=== PATIENT | male | born 1935 | race Native Hawaiian/Other Pacific Islander ===

== ENCOUNTER 2016-07-17 06:01 | Outpatient (CLI) | payer OTHER, BC ==
[2016-07-17 06:30] LABS: PLATELET COUNT 177 K/uL (142-355)
[2016-07-17 07:06] LABS: POTASSIUM 4.3 mmol/L (3.6-5.2)
== END 2016-07-17 19:08 | disposition home or self-care (01) ==
LOC: LABW 06:01
PROVIDERS: Internal Medicine Cardiovascular Disease
DX: E78.4 Other hyperlipidemia (principal); Z79.899 Other long term (current) drug therapy; Z51.81 Encounter for therapeutic drug level monitoring
CPT/HCPCS: 36415; 80048; 80061; 80076; 85027

== ENCOUNTER 2018-07-02 11:40 | Outpatient (CLI) | payer OTHER, BC | END 2018-07-02 12:02 | disposition short-term general hospital (02) | LOC: AMB 11:40 | DX: R53.1 Weakness (principal) | CPT/HCPCS: A0425; A0427 ==

== ENCOUNTER 2018-11-05 08:20 | Outpatient (CLI) | payer OTHER, BC ==
[2018-11-05 08:53] LABS: PLATELET COUNT 158 K/uL (142-355)
[2018-11-05 09:14] LABS: POTASSIUM 3.6 mmol/L (3.6-5.2)
== END 2018-11-05 19:50 | disposition home or self-care (01) ==
LOC: LABW 08:20
PROVIDERS: Internal Medicine
DX: R22.1 Localized swelling, mass and lump, neck (principal); N18.4 Chronic kidney disease, stage 4 (severe)
CPT/HCPCS: 36415; 80053; 81000; 82306; 82330; 82570; 83735; 83970; 84100; 84155; 85027

== ENCOUNTER 2018-12-29 09:26 | Outpatient (CLI) | payer OTHER, BC ==
[2018-12-29 10:00] LABS: PLATELET COUNT 166 K/uL (142-355)
[2018-12-29 10:09] LABS: POTASSIUM 3.7 mmol/L (3.6-5.2)
== END 2018-12-29 23:59 ==
LOC: LABW 09:26
PROVIDERS: Internal Medicine
DX: N18.4 Chronic kidney disease, stage 4 (severe) (principal); N25.81 Secondary hyperparathyroidism of renal origin
CPT/HCPCS: 36415; 80053; 81000; 82306; 82330; 82570; 83735; 83970; 84100; 84155; 85027

== ENCOUNTER 2019-01-26 08:20 | Outpatient (CLI) | payer OTHER, BC ==
[2019-01-26 09:02] LABS: PLATELET COUNT 157 K/uL (142-355)
== END 2019-01-26 23:15 | disposition home or self-care (01) ==
LOC: LABW 08:20
PROVIDERS: Internal Medicine
DX: N18.4 Chronic kidney disease, stage 4 (severe) (principal); N25.81 Secondary hyperparathyroidism of renal origin; D50.8 Other iron deficiency anemias; E53.8 Deficiency of other specified B group vitamins
CPT/HCPCS: 36415; 80053; 81000; 82306; 82330; 82570; 82607; 82728; 82746; 83540; 83550; 83735; 83970; 84100; 84155; 85027

== ENCOUNTER 2019-02-23 09:07 | Outpatient (CLI) | payer OTHER, BC ==
[2019-02-23 09:37] LABS: PLATELET COUNT 154 K/uL (142-355)
[2019-02-23 09:56] LABS: POTASSIUM 4.1 mmol/L (3.6-5.2)
== END 2019-02-23 19:29 | disposition home or self-care (01) ==
LOC: LABW 09:07
PROVIDERS: Internal Medicine
DX: N18.4 Chronic kidney disease, stage 4 (severe) (principal); N25.81 Secondary hyperparathyroidism of renal origin; D50.8 Other iron deficiency anemias
CPT/HCPCS: 36415; 80053; 81000; 82306; 82330; 82570; 82607; 82728; 82746; 83540; 83550; 83735; 83970; 84100; 84155; 85027

== ENCOUNTER 2019-04-05 05:07 | Emergency (ER) | payer OTHER, BC ==
[~2019-04-05] VITALS: Ht 180.3 cm; Wt 64.0 kg
[2019-04-05 05:07] VITALS: TEMP 97.9
[2019-04-05 05:50] LABS: PLATELET COUNT 160 K/uL (142-355)
[2019-04-05 06:06] LABS: POTASSIUM 3.7 mmol/L (3.6-5.2)
[2019-04-05] MEDS ORDERED: FLUOXETINE20 MG PO (06:27)
[2019-04-05] MEDS ORDERED: RENAL VITAMIN PO (06:28)
[2019-04-05] MEDS ORDERED: PANTOPRAZOLE SO40 M1 PO (06:28)
[2019-04-05] MEDS ORDERED: ASPI-93 PO (06:29)
[2019-04-05] MEDS ORDERED: VITAMIN B-121000 MC2 PO (06:29)
[2019-04-05] MEDS ORDERED: PROBIOTIC1 TAB PO (06:29)
[2019-04-05] MEDS ORDERED: VITAMIN D1000 UNI1 PO (06:32)
[2019-04-05 08:00] VITALS: BP 151/71
== END 2019-04-05 08:15 | disposition short-term general hospital (02) ==
LOC: ED 05:07
PROVIDERS: Hospitalist
DX: R07.89 Other chest pain (principal); I21.4 Non-ST elevation (NSTEMI) myocardial infarction; I50.9 Heart failure, unspecified; F17.210 Nicotine dependence, cigarettes, uncomplicated
CPT/HCPCS: 36415; 80053; 82550; 83880; 84484; 85027; 85610; 85730; 93005; 96372; 96374; 99284; J1650; J1940

== ENCOUNTER 2019-04-05 08:48 | Outpatient (CLI) | payer OTHER, BC ==
[~2019-04-05 08:48] MED LIST: ASPI-93 PO; FLUOXETINE20 MG PO; PANTOPRAZOLE SO40 M1 PO; PROBIOTIC1 TAB PO; RENAL VITAMIN PO; VITAMIN B-121000 MC2 PO; VITAMIN D1000 UNI1 PO
== END 2019-04-05 09:56 | disposition short-term general hospital (02) ==
LOC: AMB 08:48
DX: I45.19 Other right bundle-branch block (principal); R94.31 Abnormal electrocardiogram [ECG] [EKG]; R07.89 Other chest pain; R79.89 Other specified abnormal findings of blood chemistry
CPT/HCPCS: A0425; A0427

== ENCOUNTER 2019-05-17 10:37 | Outpatient (CLI) | payer OTHER, BC ==
[2019-05-17 10:53] LABS: PLATELET COUNT 110 K/uL (142-355)
[2019-05-17 11:04] LABS: POTASSIUM 3.6 mmol/L (3.6-5.2)
== END 2019-05-17 22:34 | disposition home or self-care (01) ==
LOC: LABW 10:37
PROVIDERS: Internal Medicine
DX: N18.4 Chronic kidney disease, stage 4 (severe) (principal)
CPT/HCPCS: 36415; 80053; 81000; 82330; 82570; 83735; 84100; 84155; 85027

== ENCOUNTER 2019-06-03 13:26 | Outpatient (CLI) | payer OTHER, BC ==
[2019-06-03 13:41] LABS: PLATELET COUNT 136 K/uL (142-355)
[2019-06-03 14:16] LABS: POTASSIUM 3.6 mmol/L (3.6-5.2)
== END 2019-06-03 23:06 | disposition home or self-care (01) ==
LOC: LABW 13:26
PROVIDERS: Internal Medicine
DX: R06.2 Wheezing (principal)
CPT/HCPCS: 36415; 80053; 85027

== ENCOUNTER 2019-06-29 09:02 | Outpatient (CLI) | payer OTHER, BC ==
[2019-06-29 09:20] LABS: PLATELET COUNT 104 K/uL (142-355)
[2019-06-29 09:28] LABS: POTASSIUM 3.7 mmol/L (3.6-5.2)
== END 2019-06-29 21:57 | disposition home or self-care (01) ==
LOC: LABW 09:02
PROVIDERS: Nurse Practitioner
DX: N18.4 Chronic kidney disease, stage 4 (severe) (principal)
CPT/HCPCS: 36415; 80053; 81000; 82330; 82570; 83735; 84100; 84155; 85027

== ENCOUNTER 2019-07-26 09:02 | Outpatient (CLI) | payer OTHER, BC ==
[2019-07-26 09:25] LABS: PLATELET COUNT 116 K/uL (142-355)
[2019-07-26 09:32] LABS: POTASSIUM 3.5 mmol/L (3.6-5.2)
== END 2019-07-26 22:47 | disposition home or self-care (01) ==
LOC: LABW 09:02
PROVIDERS: Internal Medicine
DX: N18.4 Chronic kidney disease, stage 4 (severe) (principal)
CPT/HCPCS: 36415; 80053; 81000; 82330; 82570; 83735; 84100; 84155; 85027

== ENCOUNTER 2019-09-14 08:29 | Outpatient (CLI) | payer OTHER, BC ==
[2019-09-14 09:12] LABS: POTASSIUM 3.8 mmol/L (3.6-5.2)
[2019-09-14 09:49] LABS: PLATELET COUNT 123 K/uL (142-355)
== END 2019-09-14 19:05 | disposition home or self-care (01) ==
LOC: LABW 08:29
PROVIDERS: Internal Medicine
DX: N18.4 Chronic kidney disease, stage 4 (severe) (principal); D50.8 Other iron deficiency anemias; E53.8 Deficiency of other specified B group vitamins
CPT/HCPCS: 36415; 80053; 81000; 82330; 82570; 82607; 82728; 82746; 83540; 83550; 83735; 84100; 84155; 85027

== ENCOUNTER 2019-11-01 08:43 | Outpatient (CLI) | payer OTHER, BC | END 2019-11-01 19:21 | disposition home or self-care (01) | LOC: LABW 08:43 | PROVIDERS: Internal Medicine Cardiovascular Disease | DX: Z79.899 Other long term (current) drug therapy (principal); R06.02 Shortness of breath | CPT/HCPCS: 36415; 80048; 83880 ==

== ENCOUNTER 2019-11-16 08:55 | Outpatient (CLI) | payer OTHER, BC ==
[2019-11-16 09:53] LABS: PLATELET COUNT 152 K/uL (142-355)
[2019-11-16 10:24] LABS: POTASSIUM 3.9 mmol/L (3.6-5.2)
== END 2019-11-16 22:30 | disposition home or self-care (01) ==
LOC: LABW 08:55
PROVIDERS: Internal Medicine
DX: N18.4 Chronic kidney disease, stage 4 (severe) (principal); N25.81 Secondary hyperparathyroidism of renal origin; D50.8 Other iron deficiency anemias; E53.8 Deficiency of other specified B group vitamins
CPT/HCPCS: 36415; 80053; 81000; 82306; 82330; 82570; 82607; 82728; 82746; 83540; 83550; 83735; 84100; 84155; 85027

== ENCOUNTER 2020-01-10 08:37 | Outpatient (CLI) | payer OTHER, BC ==
[2020-01-10 09:50] LABS: PLATELET COUNT 147 K/uL (142-355); POTASSIUM 4.1 mmol/L (3.6-5.2)
== END 2020-01-10 22:56 | disposition home or self-care (01) ==
LOC: LABW 08:37
PROVIDERS: Internal Medicine
DX: N18.4 Chronic kidney disease, stage 4 (severe) (principal); D50.8 Other iron deficiency anemias; E53.8 Deficiency of other specified B group vitamins
CPT/HCPCS: 36415; 80053; 81000; 82330; 82570; 82607; 82728; 82746; 83540; 83550; 83735; 84100; 84155; 85027

== ENCOUNTER 2020-02-23 12:23 | Outpatient (CLI) | payer OTHER, BC ==
[2020-02-23 13:02] LABS: POTASSIUM 4.9 mmol/L (3.6-5.2)
== END 2020-02-23 22:26 | disposition home or self-care (01) ==
LOC: LABW 12:23
PROVIDERS: Internal Medicine Cardiovascular Disease
DX: Z79.899 Other long term (current) drug therapy (principal)
CPT/HCPCS: 36415; 80048

== ENCOUNTER 2020-03-14 09:54 | Outpatient (CLI) | payer OTHER, BC ==
[2020-03-14 10:27] LABS: PLATELET COUNT 133 K/uL (142-355)
[2020-03-14 10:41] LABS: POTASSIUM 4.9 mmol/L (3.6-5.2)
== END 2020-03-14 23:31 | disposition home or self-care (01) ==
LOC: LABW 09:54
PROVIDERS: Nurse Practitioner
DX: N18.4 Chronic kidney disease, stage 4 (severe) (principal)
CPT/HCPCS: 36415; 80053; 81000; 82330; 82570; 83735; 84100; 84155; 85027

== ENCOUNTER 2020-03-17 08:53 | Outpatient (CLI) | payer OTHER, BC ==
[2020-03-17 09:36] LABS: POTASSIUM 4.3 mmol/L (3.6-5.2)
== END 2020-03-17 19:06 | disposition home or self-care (01) ==
LOC: LABW 08:53
PROVIDERS: Nurse Practitioner
DX: N18.4 Chronic kidney disease, stage 4 (severe) (principal)
CPT/HCPCS: 36415; 80053

== ENCOUNTER 2020-04-11 09:59 | Outpatient (CLI) | payer OTHER, BC ==
[2020-04-11 10:55] LABS: PLATELET COUNT 127 K/uL (142-355)
[2020-04-11 11:05] LABS: POTASSIUM 4.3 mmol/L (3.6-5.2)
== END 2020-04-11 22:25 | disposition home or self-care (01) ==
LOC: LABW 09:59
PROVIDERS: ATTEND Internal Medicine
DX: N18.4 Chronic kidney disease, stage 4 (severe) (principal)
CPT/HCPCS: 36415; 80053; 81000; 82330; 82570; 83735; 84100; 84155; 85027

== ENCOUNTER 2020-05-16 09:38 | Outpatient (CLI) | payer OTHER, BC ==
[2020-05-16 10:18] LABS: PLATELET COUNT 138 K/uL (142-355)
[2020-05-16 10:41] LABS: POTASSIUM 4.2 mmol/L (3.6-5.2)
== END 2020-05-16 22:06 | disposition home or self-care (01) ==
LOC: LABW 09:38
PROVIDERS: ATTEND Internal Medicine
DX: N18.4 Chronic kidney disease, stage 4 (severe) (principal); N25.81 Secondary hyperparathyroidism of renal origin; D50.8 Other iron deficiency anemias; Z79.899 Other long term (current) drug therapy
CPT/HCPCS: 36415; 80053; 81000; 82330; 82570; 82607; 82728; 82746; 83540; 83550; 83735; 83970; 84100; 84155; 84439; 84443; 85027; 85652; 86038

== ENCOUNTER 2020-06-09 08:22 | Outpatient (CLI) | payer OTHER, BC ==
[~2020-06-09] VITALS: Ht 180.3 cm; Wt 60.3 kg
== END 2020-06-09 09:33 | disposition home or self-care (01) ==
LOC: INF 08:22
PROVIDERS: ATTEND Internal Medicine Endocrinology, Diabetes & Metabolism
DX: D50.8 Other iron deficiency anemias (principal); N18.4 Chronic kidney disease, stage 4 (severe)
CPT/HCPCS: 96365; J1439

== ENCOUNTER 2020-06-19 09:01 | Outpatient (CLI) | payer OTHER, BC ==
[~2020-06-19] VITALS: Ht 180.3 cm; Wt 60.3 kg
[2020-06-19 09:15] VITALS: BP 128/40; TEMP 97.6
== END 2020-06-19 10:25 | disposition home or self-care (01) ==
LOC: INF 09:01
PROVIDERS: ATTEND Internal Medicine Endocrinology, Diabetes & Metabolism
DX: D50.9 Iron deficiency anemia, unspecified (principal); N18.4 Chronic kidney disease, stage 4 (severe)
CPT/HCPCS: 96365; J1439

== ENCOUNTER 2020-06-30 07:49 | Outpatient (CLI) | payer OTHER, BC | END 2020-06-30 19:20 | disposition home or self-care (01) | LOC: LABW 07:49 | PROVIDERS: ATTEND Internal Medicine | DX: N18.4 Chronic kidney disease, stage 4 (severe) (principal); N25.81 Secondary hyperparathyroidism of renal origin; D50.8 Other iron deficiency anemias | CPT/HCPCS: 82330 ==

== ENCOUNTER 2020-07-21 11:05 | Emergency (ER) | payer OTHER, BC ==
[~2020-07-21] VITALS: Ht 180.3 cm; Wt 63.0 kg
[2020-07-21 11:27] VITALS: TEMP 98.2
[2020-07-21 12:24] LABS: PLATELET COUNT 87 K/uL (142-355)
[2020-07-21 12:26] LABS: POTASSIUM 4.2 mmol/L (3.6-5.2)
[2020-07-21 14:00] VITALS: BP 127/52
== END 2020-07-21 14:52 | disposition home or self-care (01) ==
LOC: ED 11:05
PROVIDERS: Family Medicine
DX: I50.9 Heart failure, unspecified (principal); J18.9 Pneumonia, unspecified organism; F17.210 Nicotine dependence, cigarettes, uncomplicated; Z20.828 Contact with and (suspected) exposure to other viral communicable diseases
CPT/HCPCS: 36415; 80053; 81000; 83605; 83880; 84484; 85027; 87040; 87635; 93005; 96365; 96375; 99284; J0696; J1940; U0003

== ENCOUNTER 2020-08-27 20:19 | Emergency (ER) | payer OTHER, BC ==
[~2020-08-27] VITALS: Ht 180.3 cm; Wt 60.3 kg
[2020-08-27 21:01] LABS: PLATELET COUNT 122 K/uL (142-355)
[2020-08-27] MEDS ORDERED: CARV3.12 PO (21:01)
[2020-08-27] MEDS ORDERED: FURO40TA93 PO (21:01)
[2020-08-27] MEDS ORDERED: DELSYM30 MG/5 M1 PO (21:02)
[2020-08-27] MEDS ORDERED: BUMETANIDE1 MG PO (21:03)
[2020-08-27] MEDS ORDERED: TIROSINT25 MCG PO (21:03)
[2020-08-27] MEDS ORDERED: SPIRONOLACT25 MG PO (21:04)
[2020-08-27 21:40] LABS: POTASSIUM 4.8 mmol/L (3.6-5.2)
[2020-08-28 00:43] VITALS: BP 126/44; TEMP 98.4
== END 2020-08-28 00:43 | disposition short-term general hospital (02) ==
LOC: ED 20:19
PROVIDERS: Emergency Medicine Emergency Medical Services
PROC: 0D9670Z Drainage of Stomach with Drainage Device, Via Natural or Artificial Opening (ICD-10-PCS; principal; 2020-08-27)
DX: K56.699 Other intestinal obstruction unspecified as to partial versus complete obstruction (principal); K40.31 Unilateral inguinal hernia, with obstruction, without gangrene, recurrent; Z03.818 Encounter for observation for suspected exposure to other biological agents ruled out
CPT/HCPCS: 36415; 43754; 80053; 83605; 83690; 85027; 87635; 96360; 96361; 96375; 99284; J2405; J3010; U0003

== ENCOUNTER 2020-09-09 11:36 | Emergency (ER) | payer OTHER, BC ==
[~2020-09-09] VITALS: Ht 180.3 cm; Wt 60.3 kg
[2020-09-09 11:36] VITALS: TEMP 98.1
[~2020-09-09 11:36] MED LIST changes: +BUMETANIDE1 MG PO; +CARV3.12 PO; +DELSYM30 MG/5 M1 PO; +FURO40TA93 PO; +SPIRONOLACT25 MG PO; +TIROSINT25 MCG PO
[2020-09-09 12:26] LABS: PLATELET COUNT 131 K/uL (142-355)
[2020-09-09 18:30] VITALS: BP 120/42
== END 2020-09-09 18:30 | disposition short-term general hospital (02) ==
LOC: ED 11:36
PROVIDERS: Family Medicine
PROC: 0D9670Z Drainage of Stomach with Drainage Device, Via Natural or Artificial Opening (ICD-10-PCS; principal; 2020-09-09)
DX: K40.90 Unilateral inguinal hernia, without obstruction or gangrene, not specified as recurrent (principal); Z98.890 Other specified postprocedural states
CPT/HCPCS: 43754; 80053; 81000; 82150; 83690; 85027; 87040; 87077; 87185; 87186; 87205; 96360; 96365; 96375; 99284; J0696; J2405

== ENCOUNTER 2020-09-29 11:28 | Emergency (ER) | payer OTHER, BC ==
[~2020-09-29] VITALS: Ht 180.3 cm; Wt 60.3 kg
[2020-09-29 12:48] LABS: PLATELET COUNT 139 K/uL (142-355)
[2020-09-29 13:00] LABS: POTASSIUM 4.5 mmol/L (3.6-5.2)
[2020-09-29 13:05] LABS: PARTIAL THROMBOPLASTIN TIME 28.4 SECONDS (24.5-33.6)
[2020-09-29 16:30] VITALS: TEMP 99
[2020-09-29 18:30] VITALS: BP 144/58
== END 2020-09-29 20:42 | disposition short-term general hospital (02) ==
LOC: ED 11:28
PROVIDERS: Family Medicine
PROC: 0T9B70Z Drainage of Bladder with Drainage Device, Via Natural or Artificial Opening (ICD-10-PCS; principal; 2020-09-29)
DX: I50.9 Heart failure, unspecified (principal); N28.9 Disorder of kidney and ureter, unspecified; D64.89 Other specified anemias; Z11.52 Encounter for screening for COVID-19
CPT/HCPCS: 51702; 80053; 81000; 83605; 85027; 85610; 85730; 87040; 87077; 87185; 87186; 87205; 87635; 96374; 96375; 99284; J0696; J1940; J2175; J2550; U0003